=== PATIENT | female | born 1960 | race Caucasian/White ===

== ENCOUNTER 2023-05-17 06:59 | Day surgery (SDC) | payer BC ==
[2023-05-17] MEDS ORDERED: Dextrose 5%-0.45% NaCl 1,000 ML IV SCH (07:00)
[2023-05-17] MEDS ORDERED: Midazolam 1 MG/ML 2 ML SDV IV ONE ×7 (07:39→08:26)
[2023-05-17] MEDS ORDERED: fentaNYL 100 MCG/2 ML SDV ONE (07:39)
[2023-05-17] MEDS ORDERED: Midazolam 1 MG/ML 2 ML SDV ONE (07:39)
[2023-05-17] MEDS ORDERED: fentaNYL 100 MCG/2 ML SDV IV ONE ×5 (07:39→08:28)
== END 2023-05-17 09:55 | disposition home or self-care (01) ==
LOC: DL.ENDO 06:59
PROVIDERS: ATTEND Internal Medicine Gastroenterology
DX: Z12.11 Encounter for screening for malignant neoplasm of colon (principal); E78.5 Hyperlipidemia, unspecified; M54.50 Low back pain, unspecified; R25.1 Tremor, unspecified; E66.09 Other obesity due to excess calories; Z80.0 Family history of malignant neoplasm of digestive organs; Z88.8 Allergy status to other drugs, medicaments and biological substances; Z86.69 Personal history of other diseases of the nervous system and sense organs; Z87.42 Personal history of other diseases of the female genital tract; Z68.25 Body mass index [BMI] 25.0-25.9, adult
CPT/HCPCS: 45378; J2250; J3010; J7042